=== PATIENT | female | born 2000 | race American Indian/Alaskan Native ===

== ENCOUNTER 2018-08-18 15:03 | Emergency (ER) | payer MEDICAID ==
[2018-08-18 16:06] LABS: Bacteria,Urine 1+ /HPF (Negative); Bilirubin,Urine NEG (Negative); Blood,Urine NEG (Negative); Color,Urine Straw (Yellow); Protein,Urine <15 mg/dL mg/dL (Negative); Urobilinogen,Urine < 2.0 mg/dL (<2.0)
[2018-08-18 16:13] LABS: Benzodiazepines Screen,Urine PRESUMPTIVE NEGATIVE; Cannabinoid Screen,Urine PRESUMPTIVE NEGATIVE; Cocaine Screen,Urine PRESUMPTIVE NEGATIVE; Methadone Screen,Urine PRESUMPTIVE NEGATIVE; Opiate Screen,Urine PRESUMPTIVE NEGATIVE
[2018-08-18] MEDS ORDERED: NACL 0.9% 1000 ML 1,000 ML IV ONE (16:27)
[2018-08-18 16:47] LABS: Amphetamine Screen,Urine PRESUMPTIVE POSITIVE
[2018-08-18 17:00] LABS: Basophils # (Auto) 0.1 K/mm3 (0.0-0.1); Basophils % (Auto) 0.8 % (0.0-1.8); Eosinophils # (Auto) 0.1 K/mm3 (0.0-0.4); Eosinophils % (Auto) 1.7 % (0.0-4.3); Hematocrit 38.6 % (30.3-42.9); Hemoglobin 12.6 gm/dl (10.1-14.3); Lymphocytes # (Auto) 3.6 K/mm3 (1.2-5.4); Lymphocytes % (Auto) 51.5 % (13.4-35.0); Mean Corpuscular HGB Conc 33 % (30-34); Mean Corpuscular Volume 81 fl (79-97); Monocytes # (Auto) 0.6 K/mm3 (0.0-0.8); Monocytes % (Auto) 8.1 % (0.0-7.3); Platelet Count 272 K/mm3 (140-440); Red Blood Count 4.76 M/mm3 (3.65-5.03); Red Cell Distribution Width 16.2 % (13.2-15.2)
[2018-08-18 17:08] LABS: BUN/Creatinine Ratio 12; Blood Urea Nitrogen 7 mg/dL (7-17); Calcium 9.2 mg/dL (8.4-10.2); Hemolysis Index 51
[2018-08-18 19:06] VITALS: BP 118/81
--- NOTE | 2018-08-18 20:00 | Emergency Department Report ---
HPI - General Chief Complaint: Overdose Time Seen by Provider: 08/18/18 15:48 - HPI HPI: 17-year-old female presents to the emergency department from home via EMS after she took 12 pills of drio-epz-mwkfrfy cough/cold medication. The patient denies trying to harm herself but says that she was supposed to take a drug test in court today and someone told her that taking these over the counter meds would otherwise give her a clean drug test. The patient has a known history of marijuana and methamphetamine abuse. The patient denies any suicidal or homicidal ideations or any hallucinations. She took these medications with this morning. Since taking up she says that she feels slightly drowsy and nauseated. The patient is not very forthcoming. The patient's family, including her mother, were eventually bedside. They were able to tell us that the patient has a history of bipolar disorder and that she has a psychiatrist but she has not been compliant with the psychiatric meds and otherwise self medicate using street drugs. ED Past Medical Hx - Social History Smoking Status: Current Every Day Smoker Substance Use Type: Alcohol ED Review of Systems ROS: Stated complaint: OVERDOSE Other details as noted in HPI Comment: All other systems reviewed and negative Constitutional: denies: chills, fever Eyes: denies: eye pain, vision change ENT: denies: ear pain, throat pain Respiratory: denies: cough, shortness of breath Cardiovascular: denies: chest pain, palpitations Gastrointestinal: denies: abdominal pain, vomiting Genitourinary: denies: dysuria, discharge Musculoskeletal: denies: back pain, arthralgia Skin: denies: rash, lesions Neurological: denies: headache, numbness Physical Exam - Physical Exam Vital Signs: Vital Signs 08/18/18 08/18/18 08/18/18 15:48 16:00 16:15 Pulse Rate 79 86 Respiratory 26 H 24 Rate Blood Pressure 109/66 109/66 Blood Pressure [Left] O2 Sat by Pulse 100 100 100 Oximetry 08/18/18 08/18/18 08/18/18 16:27 16:31 18:15 Pulse Rate 85 77 Respiratory 14 20 19 Rate Blood Pressure 109/66 109/66 Blood Pressure [Left] O2 Sat by Pulse 100 100 99 Oximetry 08/18/18 08/18/18 08/18/18 18:31 18:45 19:06 Pulse Rate 71 73 78 Respiratory 19 14 14 Rate Blood Pressure 137/89 137/89 Blood Pressure 118/81 [Left] O2 Sat by Pulse 100 100 100 Oximetry Physical Exam: GENERAL: The patient is well-developed well-nourished. HENT: Normocephalic. Atraumatic. Patient has moist mucous membranes. EYES: Extraocular motions are intact. Pupils equal reactive to light bilaterally. NECK: Supple. Trachea is midline. CHEST/LUNGS: Clear to auscultation. There is no respiratory distress noted. HEART/CARDIOVASCULAR: Regular. There is no tachycardia. There is no murmur. ABDOMEN: Abdomen is soft, nontender. Patient has normal bowel sounds. There is no abdominal distention. SKIN: Skin is warm and dry. NEURO: The patient is awake, alert, and oriented. The patient is cooperative. The patient has no focal neurologic deficits. The patient has normal speech. Cranial nerves II through XII grossly intact. MUSCULOSKELETAL: There is no tenderness or deformity. There is no limitation r jagjit of motion. There is no evidence of acute injury. ED Course Vital Signs 08/18/18 08/18/18 08/18/18 15:48 16:00 16:15 Pulse Rate 79 86 Respiratory 26 H 24 Rate Blood Pressure 109/66 109/66 Blood Pressure [Left] O2 Sat by Pulse 100 100 100 Oximetry 08/18/18 08/18/18 08/18/18 16:27 16:31 18:15 Pulse Rate 85 77 Respiratory 14 20 19 Rate Blood Pressure 109/66 109/66 Blood Pressure [Left] O2 Sat by Pulse 100 100 99 Oximetry 08/18/18 08/18/18 08/18/18 18:31 18:45 19:06 Pulse Rate 71 73 78 Respiratory 19 14 14 Rate Blood Pressure 137/89 137/89 Blood Pressure 118/81 [Left] O2 Sat by Pulse 100 100 100 Oximetry ED Medical Decision Making - Lab Data Result diagrams: 08/18/18 16:36 08/18/18 16:36 - EKG Data -: EKG Interpreted by [facility] EKG shows normal: sinus rhythm, axis, intervals, QRS complexes, ST-T waves Rate: normal - EKG Data When compared to previous EKG there are: previous EKG unavailable Interpretation: normal EKG - Medical Decision Making This patient presents to the emergency department for evaluation after taking Tylenol jpxn-kdv-ngzzogm cough/cold medication pills. It does not appear the patient took it with the intent of self-harm or suicidal ideations but instead thought that it would mask marijuana and methamphetamines on a drug test. Patient had some nausea without vomiting and some drowsiness but she has been awake and alert throughout ED course. The patient says that she does not remember details regarding taking the pills but it appears more likely that she is just not forthcoming. Poison control was contacted and we obtained all the appropriate labs and EKG. These all resulted as normal. They recommended a 6 hour observation period, which the patient had. She remained awake, alert and in no acute distress. She was seen by the psychiatric assessment team who agrees that the patient does not appear to require a 1013 for inpatient psychiatric admission. The patient does appear to have some psychiatric problems but says that she has a outpatient psychiatrist she can follow-up with. Critical Care Time: No Critical care attestation.: If time is entered above; I have spent that time in minutes in the direct care of this critically ill patient, excluding procedure time. ED Disposition Clinical Impression: History of methamphetamine abuse Overdose of common cold drug Qualifiers: Encounter type: initial encounter Injury intent: undetermined intent Qualified Code(s): T48.5X4A - Poisoning by other oanz-nlvotw-sgyi drugs, undetermined, initial encounter Disposition: - TO HOME OR SELFCARE Is pt being admited?: No Condition: Stable Instructions: Methamphetamine Abuse (ED) Additional Instructions: Please follow-up with your psychiatrist. Return to the emergency department with any thoughts of harming yourself or others. Return to the emergency Department with any worsening of your symptoms or any acute distress. Please do not take any further pnut-pen-xysvchf cough/cold medications, or any other medications, until prescribed or cleared by a physician. [facility] Time of Disposition: 20:02
== END 2018-08-18 20:41 | disposition home or self-care (01) ==
LOC: ED 15:03
DX: T48.5X4A Poisoning by other anti-common-cold drugs, undetermined, initial encounter (principal); F17.200 Nicotine dependence, unspecified, uncomplicated; F15.10 Other stimulant abuse, uncomplicated; Y92.9 Unspecified place or not applicable
CPT/HCPCS: 36415; 80048; 80307; 81001; 84703; 85025; 93005; 93010; 99284; G0480; J7030; 80320